=== PATIENT | male | born 1980 | race Hispanic/Latino ===

== ENCOUNTER 2019-11-23 14:27 | Emergency (ER) | payer OTHER ==
[2019-11-23 16:39] LABS: Basophils # (Auto) 0.1 K/mm3 (0.0-0.1); Basophils % (Auto) 0.9 % (0.0-1.8); Eosinophils % (Auto) 0.2 % (0.0-4.3); Hematocrit 43.9 % (35.5-45.6); Hemoglobin 15.6 gm/dl (11.8-15.2); Lymphocytes # (Auto) 2.1 K/mm3 (1.2-5.4); Lymphocytes % (Auto) 28.7 % (13.4-35.0); Mean Corpuscular HGB Conc 36 % (32-34); Mean Corpuscular Volume 89 fl (84-94); Monocytes # (Auto) 0.4 K/mm3 (0.0-0.8); Monocytes % (Auto) 6.1 % (0.0-7.3); Platelet Count 247 K/mm3 (140-440); Red Blood Count 4.96 M/mm3 (3.65-5.03); Red Cell Distribution Width 13.3 % (13.2-15.2)
[2019-11-23 16:46] LABS: Bilirubin,Urine NEG (Negative); Blood,Urine NEG (Negative); Color,Urine Yellow (Yellow); Mucus,Urine FEW /HPF; Protein,Urine <15 mg/dL mg/dL (Negative); Urobilinogen,Urine < 2.0 mg/dL (<2.0); WBC,Urine < 1.0 /HPF (0.0-6.0)
[2019-11-23 16:58] LABS: Alanine Aminotransferase 43 units/L (7-56); Albumin 4.7 g/dL (3.9-5); BUN/Creatinine Ratio 16; Blood Urea Nitrogen 13 mg/dL (9-20); Calcium 9.6 mg/dL (8.4-10.2); Hemolysis Index 11
--- NOTE | 2019-11-23 19:10 | Ultrasound Report ---
ULTRASOUND SCROTUM INDICATION / CLINICAL INFORMATION: right testicular pain and pain in elevation. COMPARISON: None available. FINDINGS -- RIGHT TESTIS: Size = 3.8 x 2.3 x 2.8 cm. - Appearance: No significant abnormality. - Cyst or Mass: None. - Color Doppler Flow: No significant abnormality. EPIDIDYMIS: The right epididymis measures 1.1 cm in length and demonstrates normal Doppler flow. Adj acent to the epididymis, there is a 1 cm well-circumscribed anechoic structure which is most compatib le with an epididymal cyst. HYDROCELE: Small. VARICOCELE: None demonstrated. FINDINGS -- LEFT TESTIS: Size = 3.4 x 2.1 x 2.9 cm. - Appearance: No significant abnormality. - Cyst or Mass: None. - Color Doppler Flow: No significant abnormality. EPIDIDYMIS: No significant abnormality. HYDROCELE: Trace. VARICOCELE: None demonstrated. ADDITIONAL FINDINGS: None. IMPRESSION: 1. Cystic structure adjacent to the right epididymis likely reflects an epididymal cyst. This could a lso represent a spermatocele. 2. No evidence of testicular torsion. 3. Small hydroceles bilaterally. Signer Name: Kulwinder Overton MD Signed: 11/23/2019 7:05 PM Workstation Name: [id number]
--- NOTE | 2019-11-23 19:59 | Cat Scan Report ---
CT ABDOMEN AND PELVIS WITH CONTRAST INDICATION / CLINICAL INFORMATION: Lower ABD Pain. TECHNIQUE: Axial CT images were obtained through the abdomen and pelvis following the administration of intraven ous contrast. All CT scans at this location are performed using CT dose reduction for ALARA by means of automated exposure control. COMPARISON: None available. FINDINGS: LOWER CHEST: No significant abnormality. LIVER: No significant abnormality. GALLBLADDER: No significant abnormality. PANCREAS: No significant abnormality. SPLEEN: No significant abnormality. ADRENALS: No significant abnormality. KIDNEYS / URETERS: No significant abnormality. URINARY BLADDER: No significant abnormality. REPRODUCTIVE ORGANS: No significant abnormality. STOMACH / SMALL BOWEL: No significant abnormality. COLON: No significant abnormality. APPENDIX: No significant abnormality. PERITONEUM: No free fluid. No free air. No fluid collection. LYMPH NODES: No significant adenopathy. AORTA / ARTERIES: No significant abnormality. IVC / VEINS: No significant abnormality. SKELETAL SYSTEM: No acute osseous abnormality. Moderate intervertebral disc space height loss at L5-S 1. ADDITIONAL FINDINGS: None. IMPRESSION: 1. No acute abdominopelvic abnormality. Signer Name: Kulwinder Overton MD Signed: 11/23/2019 7:54 PM Workstation Name: [id number]
[2019-11-23] MEDS ORDERED: KETOROLAC 60 MG/2 ML INJ IM STA (20:35)
--- NOTE | 2019-11-23 20:37 | Emergency Department Report ---
ED Male HPI - General Chief complaint: Abdominal Pain Stated complaint: ABDOMINAL PAIN Time Seen by Provider: 11/23/19 17:18 Source: patient Mode of arrival: Ambulatory Limitations: No Limitations - History of Present Illness Initial comments: 39-year-old male presents emerged department complaining of a 2-month history of episodic right testicular pain but noticed about 2 days ago that his right testicle had began to elevate and become increasingly more painful was some dull throbbing and some mild swelling. Reports no penile discharge no dysuria no flank pain no fever chills or sweats but did have some some hematuria about a month ago from an unknown etiology. He denies any testicular trauma no fever chills or sweats no rashes. No palliative factors but currently the symptoms are worse with palpation. Severity: moderate Quality: dull Consistency: constant Worsens with: none swelling. denies: urinary retention, blood in urine, nausea/vomiting, incontinence - Related Data Allergies Allergy/AdvReac Type Severity Reaction Status Date / Time No Known Allergies Allergy Unverified 11/23/19 16:05 ED Review of Systems ROS: Stated complaint: ABDOMINAL PAIN Other details as noted in HPI Comment: All other systems reviewed and negative ED Past Medical Hx - Past Medical History Hx Hypertension: Yes - Surgical History Past Surgical History?: No ED Physical Exam - General Limitations: No Limitations General appearance: alert, in no apparent distress - Head Head exam: Present: atraumatic, normocephalic - Eye Eye exam: Present: normal appearance, PERRL, EOMI Pupils: Present: normal accommodation - ENT ENT exam: Present: normal exam, mucous membranes moist, TM's normal bilaterally - Neck Neck exam: Present: normal inspection, full ROM - Respiratory Respiratory exam: Present: normal lung sounds bilaterally. Absent: respiratory distress, wheezes, rales, chest wall tenderness, accessory muscle use - Cardiovascular Cardiovascular Exam: Present: regular rate, normal rhythm. Absent: systolic murmur, diastolic murmur, rubs, gallop - GI/Abdominal GI/Abdominal exam: Present: soft, normal bowel sounds - Rectal Rectal exam: Present: deferred - Extremities Exam Extremities exam: Present: normal inspection, normal capillary refill - Back Exam Back exam: Present: normal inspection. Absent: CVA tenderness (R), CVA tenderness (L) - Neurological Exam Neurological exam: Present: alert, oriented X3, CN II-XII intact, normal gait - Psychiatric Psychiatric exam: Present: normal affect, normal mood. Absent: anxious, flat affect, manic, suicidal ideation - Skin Skin exam: Present: warm, dry, intact, normal color. Absent: rash, cyanosis, diaphoretic, urticaria, petechiae, pallor ED Medical Decision Making - Lab Data Result diagrams: 11/23/19 16:17 11/23/19 16:17 Critical care attestation.: If time is entered above; I have spent that time in minutes in the direct care of this critically ill patient, excluding procedure time. ED Disposition Clinical Impression: Hydrocele in adult, Epididymal cyst Disposition: TO HOME OR SELFCARE Is pt being admited?: No Does the pt Need Aspirin: No Condition: Stable Instructions: Testicle Pain (ED), Testicular Self-examination (ED), Epididymitis (ED), Hydrocele (ED) Additional Instructions: Urinalysis and lab work were clean for any infectious processes there is evidence of structural abnormalities involving the right testicle which may contribute to the inflammatory phase which you were experiencing however there was no emergent medical condition present involving your testicles or your abdomen Referrals: [facility] [Provider Group] - 3-5 Days
== END 2019-11-23 21:43 | disposition home or self-care (01) ==
LOC: ED 14:27
DX: N43.2 Other hydrocele (principal); N50.3 Cyst of epididymis; I10 Essential (primary) hypertension
CPT/HCPCS: 36415; 74177; 80053; 81001; 85025; 93975; 96372; 99284; J1885; Q9967

== ENCOUNTER 2021-03-09 07:14 | Outpatient (CLI) | payer OTHER ==
--- NOTE | 2021-03-09 08:50 | Mammography Report ---
BILATERAL DIGITAL DIAGNOSTIC MAMMOGRAM WITH CAD CONVENTIONAL, 03/09/2021 RIGHT LIMITED BREAST ULTRASOUND CLINICAL INFORMATION / INDICATION: Pain, swelling, palpable abnormality right breast TECHNIQUE: Digital bilateral mammographic imaging was performed. Spot compression views were obtained . Limited ultrasound was performed. This examination was interpreted with the benefit of Computer-Aid ed Detection (CAD) analysis. COMPARISON: None FINDINGS: Breast Density: The breasts are almost entirely fatty. MAMMOGRAPHIC FINDINGS: Minimal left gynecomastia is seen. More noticeable right gynecomastia is noted . No discrete mammographic lesion is seen. ULTRASOUND FINDINGS: Targeted ultrasound evaluation was performed of the area of interest. Examinatio n of the right retroareolar area at the site of interest, and compared to brief analogous images on t he left, shows a discrete hypoechoic ovoid solid area in the tissue directly posterior to the nipple which is asymmetric. By my measurement this area has a width of approximately 15 mm and a thickness o f 11 mm. Fairly well-defined borders are seen on these images. Moderate shadowing is noted. No defini te internal flow is seen. IMPRESSION: By ultrasound only there is an asymmetric nodular type solid lesion directly posterior to the nipple corresponding to the area of palpable concern and pain. Follow up recommendation: Given this may be technically challenging due to the location, ultrasound-g uided biopsy could be attempted. BI-RADS Category 4: SUSPICIOUS FOR MALIGNANCY. A "normal" or negative report should not discourage follow up or biopsy of a clinically significant f inding. A written summary of these findings will be mailed to the patient. The patient will be entered into a mammography reporting system which will generate a reminder letter for the patient's next appointmen t at the appropriate interval. According to the [employer], yearly mammograms are recommended starting at age 40 and continuing as long as a woman is in good health. Breast MRI is recommended for women with an bia roximately 20-25% or greater lifetime risk of breast cancer, including women with a strong family his tory of breast or ovarian cancer and women who have been treated for Hodgkin's disease. Signer Name: Marcos Corona MD Signed: 03/09/2021 8:46 AM Workstation Name: [id number]
== END 2021-03-09 07:15 | disposition home or self-care (01) ==
LOC: MAMMO 07:14
PROVIDERS: ATTEND Specialist
DX: R92.8 Other abnormal and inconclusive findings on diagnostic imaging of breast (principal); N62 Hypertrophy of breast
CPT/HCPCS: 77066